=== PATIENT | female | born 1995 | race Caucasian/White ===

== ENCOUNTER 2023-01-02 19:48 | Emergency (ER) | payer OTHER, SELFPAY ==
[2023-01-02 20:02] VITALS: BP 119/66; PULSE 97; RESP 18; TEMP 36.9; O2SAT 100
--- NOTE | 2023-01-02 20:18 | ECG_ITS ---
Measurements Intervals [place] Rate: 86 P: 61 SD: 143 QRS: 85 QRSD: 90 T: 57 QT: 341 QTc: 409 Interpretive Statements SINUS RHYTHM INCOMPLETE RIGHT BUNDLE BRANCH BLOCK BORDERLINE ECG NO PREVIOUS ECG AVAILABLE FOR COMPARISON Electronically Signed On 01-03-2023 7:02:35 CDT by Dhaval Fisehr D.O.
--- NOTE | 2023-01-02 20:30 | ED.GENADULT ---
HPI - General Adult General Chief complaint: Dizziness Stated complaint: dizziness Time Seen by Provider: 01/02/23 20:10 History of Present Illness HPI narrative: 27-year-old female presenting to the ED for evaluation of a near syncopal episode. Patient reports just prior to arrival she had been getting ready for work when she was in the shower and had onset of lightheaded and dizziness. Patient fell like she is going to blackout. Patient states she did not actually have a syncopal episode. Patient was able to sit down the shower and rested for approximately 5 minutes and felt improved. Upon arrival lumbar department patient states she does feel improved. Patient is anxious about the situation. Patient denies any prior cardiac history. When asked if she had been eating and drinking well patient said no. Patient denies any change in medications, patient states he does not take any medications. Patient denies any alcohol or THC. Related Data Allergies Allergy/AdvReac Type Severity Reaction Status Date / Time Sulfa (Sulfonamide Allergy Other Verified 01/02/23 20:31 Antibiotics) Review of Systems Review of Systems: All systems reviewed & are unremarkable except as noted in HPI and below Exam Narrative: APPEARANCE: Well appearing, no pain, no distress, well-nourished. HEAD: normocephalic, atraumatic. EYES: PERRLA/EOMI, conjunctivae clear. NOSE: Normal no drainage NECK: Supple. No adenopathy, no masses. RESPIRATORY: Airway patent, respirations nonlabored. Clear to auscultation bilaterally, no rales, rhonchi, wheezing. CARDIOVASCULAR: Regular rate and rhythm without murmurs rubs or gallops. ABDOMINAL: Soft, nontender, nondistended, normal bowel sounds MUSCULOSKELETAL: Moves all extremities. Strength/ROM intact, No edema, No calf tenderness. NEURO: Alert. Cranial nerves II through XII intact. Grossly intact SKIN: Warm, dry. Normal Color Course Course Emergency Course: 27-year-old female presented ED for evaluation after having a near syncopal episode. Upon arrival to the ED patient states her symptoms are improved. Patient's vital signs are normal. Patient had no abnormalities on her CBC or CMP. UA had no evidence of infection. EKG showed normal sinus rhythm. Patient had normal orthostatic vital signs. Patient did feel improved after rehydration. Patient states that she had not been eating well over the past few days the patient was encouraged to follow a well-balanced diet. Patient was also encouraged to have close follow-up with her primary care physician. Patient was educated on reasons to return to the [facility] primary. All questions concerns were addressed and patient was well-appearing at time of discharge. Vital Signs Vital signs: Vital Signs Temperature 98.4 F 01/02/23 20:02 Pulse Rate 97 01/02/23 20:02 Respiratory Rate 18 01/02/23 20:02 Blood Pressure 119/66 01/02/23 20:02 Pulse Oximetry 100 01/02/23 20:02 Oxygen Delivery Room Air 01/02/23 20:02 Temperature 98.4 F 01/02/23 20:02 Pulse Rate 79 01/02/23 21:49 Respiratory Rate 16 01/02/23 21:49 Blood Pressure 112/55 L 01/02/23 21:49 Pulse Oximetry 100 01/02/23 21:49 Oxygen Delivery Room Air 01/02/23 20:02 Medical Decision Making Vital Signs Vital Signs: Vital Signs Temperature 98.4 F 01/02/23 20:02 Pulse Rate 97 01/02/23 20:02 Respiratory Rate 18 01/02/23 20:02 Blood Pressure 119/66 01/02/23 20:02 Pulse Oximetry 100 01/02/23 20:02 Oxygen Delivery Room Air 01/02/23 20:02 Temperature 98.4 F 01/02/23 20:02 Pulse Rate 79 01/02/23 21:49 Respiratory Rate 16 01/02/23 21:49 Blood Pressure 112/55 L 01/02/23 21:49 Pulse Oximetry 100 01/02/23 21:49 Oxygen Delivery Room Air 01/02/23 20:02 Lab Data Lab results reviewed: Yes I reviewed the patient's lab results. 01/02/23 20:29 01/02/23 20:29 Labs: Lab Results 01/02/23
[2023-01-02] MEDS: SODIUM CHLORIDE 0.9% IV 1,000 ML 999 ML IV CONT (20:32)
[2023-01-02 20:37] LABS: Basophils Absolute Auto 0.1 K/mm3 (0.0-0.1); Basophils Percent Auto 1.3 % (0.2-1.2); Eosinophils Absolute Auto 0.1 K/mm3 (0-0.3); Eosinophils Percent Auto 2.9 % (0-4.4); Hemoglobin 13.6 g/dL (12.0-15.0); Immature Granulocyte Absolute 0.01 K/mm3 (0.00-0.031); Immature Granulocyte Percent A 0.3 % (0-0.5); Lymphocytes Absolute Auto 1.29 K/mm3 (0.9-3.2); Lymphocytes Percent Auto 34.4 % (18.3-44.2); Mean Corpuscular Hemoglobin 32.9 pg (26-34); Mean Corpuscular Volume 96.9 fl (80-100); Monocytes Absolute Auto 0.4 K/mm3 (0.1-0.6); Monocytes Percent Auto 10.4 % (2.6-8.5); Neutrophils Absolute Auto 1.9 K/mm3 (1.3-6.7); Neutrophils Percent Auto 50.7 % (45.5-73.1); Platelet Count Result 195 k/mm3 (150-375); Red Blood Count 4.13 M/mm3 (4.2-5.4); Red Cell Distribution Width 11.4 % (11.5-14.5); White Blood Count 3.8 K/mm3 (4.5-10.0)
[2023-01-02 20:46] LABS: Alanine Aminotransferase 16 U/L (6-35); Albumin Level 4.5 g/dL (3.5-5.1); Alkaline Phosphatase 35 U/L (38-126); Anion Gap 5 mmol/L (8-16); Aspartate Amino Transferase 20 U/L (14-36); Bilirubin,Total 0.6 mg/dL (0.2-1.3); Blood Urea Nitrogen 11 mg/dL (7-17); Calcium 9.2 mg/dL (8.4-10.2); Carbon Dioxide 31 mmol/L (22-30); Chloride 102 mmol/L (98-107); Estimated CRCL calculation 88 ml/min; Estimated Glomerular Filt Rate > 60; Glucose 70 mg/dL (65-110); Potassium 4.1 mmol/L (3.4-5.0); Sodium 138 mmol/L (137-145)
[2023-01-02 21:26] VITALS: BP 106/58; PULSE 82
[2023-01-02 21:28] VITALS: BP 107/69; PULSE 79
[2023-01-02 21:30] VITALS: BP 107/64; PULSE 90
[2023-01-02 21:45] LABS: Appearance Urine Cloudy (Clear); Bacteria Urine None Seen /hpf; Bilirubin Urine Negative (Negative); Blood Urine Negative (Negative); Color Urine Yellow (Yellow); Glucose Urine UA Negative (Negative); Ketones Urine Negative (Negative); Leukocyte Esterase Ur Negative LEU/UL (Negative); Nitrate Urine Negative (Negative); Non Pathogenic Casts 0-2; Protein Urine Negative (Negative); RBC Urine 0-2 /hpf (0-2); Specific Grav Ur 1.018 (1.001-1.035); Squamous Epithelial Cell Urine None seen /hpf (Few); WBC Urine 0-5 /hpf
[2023-01-02 21:46] LABS: Add Urine Microscopic? YES
[2023-01-02 21:49] VITALS: BP 112/55; PULSE 79; RESP 16; O2SAT 100
== END 2023-01-02 22:05 | disposition home or self-care (01) ==
PROVIDERS: Emergency Provider Emergency Medicine; PCP Family Medicine
DX: R42 Dizziness and giddiness (principal)
CPT/HCPCS: 36415; 80053; 81001; 81025; 83735; 84443; 85025; 93005; 96360; 99283; J7030

== ENCOUNTER 2023-03-19 09:00 | Outpatient (CLI) | payer OTHER, SELFPAY ==
--- NOTE | ~2023-03-19 | US_ITS ---
Pelvic ultrasound. Clinical History: Ovarian cyst Technique: Realtime transabdominal and transvaginal scanning of the pelvis was performed. Color flow Doppler and Doppler spectral analysis were performed. Findings: The uterus is anteverted. The endometrial stripe has a thickness of 10 mm. No focal mass i s identified. The right ovary measures 1.8 x 1.5 x 1.4 cm. No significant right ovarian or adnexal mass is seen. The left ovary measures 2.1 x 2.4 x 2.0 cm. No significant left ovarian or adnexal mass is seen. Vascular flow present in both ovaries on Doppler spectral analysis. There is no evidence of free fluid in the cul de sac. Impression: Unremarkable pelvic ultrasound. Reviewed, dictated and finalized at [facility]. Impression: Unremarkable pelvic ultrasound.
== END 2023-03-19 09:01 | disposition home or self-care (01) ==
PROVIDERS: PCP Family Medicine; Visit Provider Nurse Practitioner Family
DX: N83.209 Unspecified ovarian cyst, unspecified side (principal)
CPT/HCPCS: 76830

== ENCOUNTER 2023-04-30 21:56 | Emergency (ER) | payer OTHER, SELFPAY ==
[2023-04-30 22:20] VITALS: BP 103/62; PULSE 80; RESP 20; TEMP 36.5; O2SAT 100
--- NOTE | 2023-05-01 04:42 | PC.NURSE ---
no answer at triage
== END 2023-05-01 05:44 | disposition left against medical advice (07) ==
LOC: ANHED 05-01 04:51
PROVIDERS: PCP Family Medicine
DX: R10.2 Pelvic and perineal pain (principal)
CPT/HCPCS: 99199

== ENCOUNTER 2023-06-29 15:04 | Emergency (ER) | payer OTHER, SELFPAY ==
--- NOTE | ~2023-06-29 | US_ITS ---
EXAMINATION: US OB <=14 wk fetus w TV DATE: 06/29/2023 17:02 INDICATION: Cramping and spotting. Evaluate for ectopic . TECHNIQUE: Real-time transabdominal obstetric ultrasound. FINDINGS: No prior studies for comparison. The uterus measures 9.2 x 5.5 x 6.4 cm. There is an intrauterine gestational sac, with pole juan ntified. The crown rump length measures 0.71 cm, which correlates with a estimated gestational age o f 6 weeks 4 days. heart tones are identified measuring 139. The ovaries are within normal morel its. IMPRESSION: 1. SL IUP with an EGA of 6 weeks, 4 days (EDC by current ultrasound of 02/18/2024). Reviewed, dictated and finalized at location L. COVERS TRIMMER IMPRESSION: 1. SL IUP with an EGA of 6 weeks, 4 days (EDC by current ultrasound of ).
[2023-06-29 15:08] VITALS: BP 110/58; PULSE 82; RESP 16; TEMP 36.9; O2SAT 100
--- NOTE | 2023-06-29 15:10 | ED.ABDPAIN ---
HPI - Abdominal Pain General Chief Complaint: Abdominal Pain Stated Complaint: pelvic pain/6 weeks Time Seen by Provider: 06/29/23 16:15 Source: patient Mode of arrival: ambulatory Limitations: no limitations History of Present Illness HPI narrative: Patient is a 27 y/o female who presents to the ED with c/o lower abdominal cramping. Patient is currently approximately [address] 05/15/23, . OBGYN will be Dr. Ryan. Patient reports having intermittent lower abdominal cramping for the last 3 weeks. She is concerned she may have an ectopic and is unable to be seen by OBGYN until 07/29. She presents today wanting an US. She was seen at an outside hospital on Wednesday but did not receive an US. She does also c/o N/V and states she noticed a small amount of vaginal spotting 3 days ago with wiping. She has not had any bleeding since then. Denies fevers, dysuria, hematuria. Related Data Allergies Allergy/AdvReac Type Severity Reaction Status Date / Time Sulfa (Sulfonamide Allergy Other Verified 03/10/23 08:22 Antibiotics) Review of Systems Constitutional: Constitutional: Denies fever(s) Gastrointestinal: Gastrointestinal: Reports abdominal pain, Reports nausea and Reports vomiting Genitourinary: Genitourinary: Reports abnormal vaginal bleeding, Denies hematuria and Denies dysuria [facility] Past Medical History Medical History Body mass index (BMI) less than 20 Family History Family History Father Intestinal anomaly, congenital Mother Diverticulitis Sibling No problems noted. 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 Exam Const: General: healthy appearing and no acute distress Nutritional Appearance: well nourished Orientation/consciousness: patient oriented x3 Limitations: no limitations Resp: Effort & Inspection: normal respiratory effort Auscultation: clear to auscultation bilaterally Cardio: Rate: regular rate Rhythm: regular rhythm GI: GI Palp: Yes Soft to palpation and No Tenderness to palpation present (GI) Auscultation: normal bowel sounds Course Vital Signs Vital signs: Vital Signs Temperature 98.4 F 06/29/23 15:08 Pulse Rate 82 06/29/23 15:08 Respiratory Rate 16 06/29/23 15:08 Blood Pressure 110/58 L 06/29/23 15:08 Pulse Oximetry 100 06/29/23 15:08 Oxygen Delivery Room Air 06/29/23 15:08 Temperature 98.4 F 06/29/23 15:08 Pulse Rate 82 06/29/23 15:08 Respiratory Rate 16 06/29/23 15:08 Blood Pressure 110/58 L 06/29/23 15:08 Pulse Oximetry 100 06/29/23 15:08 Oxygen Delivery Room Air 06/29/23 15:08 MDM - Abdominal Pain MDM Narrative Medical decision making narrative: MSE by ZULAY in triage. Patient present ED with lower abdominal cramping, vaginal spotting, currently , unsure how far along. Approximately 6 weeks by last normal cycle. Wanting ultrasound. Vital signs stable upon arrival. Patient in no acute distress. Nontoxic appearing. Basic laboratory studies unremarkable. Beta quant around 129,000. Urine appears infectious. Will send for culture and treat. Ultrasound obtained today showing a live IUP, 6 weeks 4 day
[2023-06-29 15:40] LABS: Basophils Percent Auto 0.6 % (0.2-1.2); Eosinophils Percent Auto 0.2 % (0-4.4); Hematocrit 35.9 % (37.0-47.0); Hemoglobin 11.8 g/dL (12.0-15.0); Immature Granulocyte Absolute 0.01 K/mm3 (0.00-0.031); Immature Granulocyte Percent A 0.2 % (0-0.5); Lymphocytes Absolute Auto 1.22 K/mm3 (0.9-3.2); Lymphocytes Percent Auto 25.7 % (18.3-44.2); Mean Corpuscular HGB Conc 32.9 g/dl (32-36); Mean Corpuscular Hemoglobin 31.6 pg (26-34); Mean Corpuscular Volume 96.2 fl (80-100); Mean Platelet Volume 11.8 fl (7.4-10.4); Monocytes Absolute Auto 0.4 K/mm3 (0.1-0.6); Monocytes Percent Auto 8.2 % (2.6-8.5); Neutrophils Absolute Auto 3.1 K/mm3 (1.3-6.7); Neutrophils Percent Auto 65.1 % (45.5-73.1); Platelet Count Result 165 k/mm3 (150-375); Red Blood Count 3.73 M/mm3 (4.2-5.4); Red Cell Distribution Width 11.9 % (11.5-14.5); White Blood Count 4.7 K/mm3 (4.5-10.0)
[2023-06-29 15:40] LABS: Appearance Urine Cloudy (Clear); Bacteria Urine 4+ /hpf; Bilirubin Urine Negative (Negative); Blood Urine Negative (Negative); Color Urine Yellow (Yellow); Glucose Urine UA Negative (Negative); Ketones Urine Negative (Negative); Leukocyte Esterase Ur 2+ LEU/UL (Negative); Nitrate Urine Negative (Negative); Non Pathogenic Casts 0-2; Protein Urine Negative (Negative); RBC Urine 0-2 /hpf (0-2); Specific Grav Ur 1.009 (1.001-1.035); Squamous Epithelial Cell Urine Many /hpf (Few); Urobilinogen Urine 0.2 mg/dL (<2.0); WBC Urine 21-50 /hpf; pH Urine 7.5 (5.0-9.0)
[2023-06-29 15:55] LABS: Add Urine Microscopic? YES
[2023-06-29 16:17] VITALS: BP 104/63; PULSE 72; RESP 17; O2SAT 100
[2023-06-29 16:18] VITALS: PULSE 67; RESP 18; O2SAT 100
[2023-06-29 17:37] VITALS: BP 112/64; PULSE 87; RESP 18; O2SAT 100
== END 2023-06-29 17:49 | disposition home or self-care (01) ==
PROVIDERS: Emergency Provider Physician Assistant; PCP Family Medicine
DX: O23.41 Unspecified infection of urinary tract in pregnancy, first trimester (principal); R10.2 Pelvic and perineal pain; Z3A.01 Less than 8 weeks gestation of pregnancy
CPT/HCPCS: 36415; 76801; 76817; 81001; 84702; 85025; 85461; 86850; 86880; 86900; 86901; 87086; 99284

== ENCOUNTER 2023-08-12 11:12 | Outpatient (CLI) | payer OTHER, SELFPAY ==
--- NOTE | ~2023-08-12 | US_ITS ---
EXAMINATION: US thyroid DATE: 08/12/2023 11:50 INDICATION: Nontoxic goiter, unspecified. TECHNIQUE: Multiple ultrasound images of the thyroid were obtained. COMPARISON: None. FINDINGS: The right thyroid lobe measures 3.9 x 1.8 x 1.3 cm. The left thyroid lobe measures 3.8 x 1.4 x 1.1 c m. There is normal echotexture and echogenicity throughout the thyroid gland. No discrete nodules id entified. Normal vascular flow is present. IMPRESSION: 1. Normal thyroid. Reviewed, dictated and finalized at location E. R SUPPLY ENGINEER IMPRESSION: 1. Normal thyroid.
== END 2023-08-12 11:13 | disposition home or self-care (01) ==
PROVIDERS: PCP Family Medicine; Visit Provider Registered Nurse
DX: E04.9 Nontoxic goiter, unspecified (principal)
CPT/HCPCS: 76536

== ENCOUNTER 2023-11-26 10:33 | Outpatient (RCR) | payer OTHER, SELFPAY ==
[2023-11-26] MEDS: RHO(D) IMMUNE GLOBULIN 300 MCG/2 ML SYRINGE IM (12:32)
== END 2023-11-26 11:00 | disposition home or self-care (01) ==
LOC: ANHLAB 10:33
PROVIDERS: PCP Family Medicine; Visit Provider Nurse Practitioner Family
DX: O36.0920 Maternal care for other rhesus isoimmunization, second trimester, not applicable or unspecified (principal); Z34.92 Encounter for supervision of normal pregnancy, unspecified, second trimester; Z3A.00 Weeks of gestation of pregnancy not specified
CPT/HCPCS: 36415; 85461; 86850; 86900; 86901; 90384; 96372; J2790

== ENCOUNTER 2024-01-04 15:09 | Outpatient (CLI) | payer OTHER, SELFPAY ==
[2024-01-04 15:45] LABS: Basophils Percent Auto 0.4 % (0.2-1.2); Hematocrit 30.8 % (37.0-47.0); Hemoglobin 10.6 g/dL (12.0-15.0); Immature Granulocyte Absolute 0.03 K/mm3 (0.00-0.031); Immature Granulocyte Percent A 0.4 % (0-0.5); Lymphocytes Percent Auto 14.9 % (18.3-44.2); Mean Corpuscular HGB Conc 34.4 g/dl (32-36); Mean Corpuscular Hemoglobin 34.9 pg (26-34); Mean Corpuscular Volume 101.3 fl (80-100); Mean Platelet Volume 12.3 fl (7.4-10.4); Monocytes Absolute Auto 0.5 K/mm3 (0.1-0.6); Monocytes Percent Auto 6.1 % (2.6-8.5); Neutrophils Absolute Auto 6.3 K/mm3 (1.3-6.7); Neutrophils Percent Auto 78.2 % (45.5-73.1); Platelet Count Result 107 k/mm3 (150-375); Red Blood Count 3.04 M/mm3 (4.2-5.4); White Blood Count 8.1 K/mm3 (4.5-10.0)
[2024-01-04 17:05] LABS: HIV 1/2 Ab P24 Ag Result Negative (Negative)
[2024-01-05 14:53] LABS: Rapid Plasma Reagin Non-Reactive (NonReactive)
== END 2024-01-04 15:10 | disposition home or self-care (01) ==
LOC: ANHLAB 15:11
PROVIDERS: PCP Family Medicine; Visit Provider Nurse Practitioner Obstetrics & Gynecology
DX: Z34.90 Encounter for supervision of normal pregnancy, unspecified, unspecified trimester (principal)
CPT/HCPCS: 36415; 85025; 86592; 86703; G0432

== ENCOUNTER 2024-01-11 13:50 | Outpatient (CLI) | payer OTHER, SELFPAY ==
[2024-01-11 14:33] LABS: Mean Platelet Volume 12.7 fl (7.4-10.4); Platelet Count Result 118 k/mm3 (150-375)
== END 2024-01-11 13:51 | disposition home or self-care (01) ==
LOC: ANHLAB 13:52
PROVIDERS: PCP Family Medicine; Visit Provider Obstetrics & Gynecology
DX: D69.6 Thrombocytopenia, unspecified (principal)
CPT/HCPCS: 36415; 85049

== ENCOUNTER 2024-01-18 13:44 | Outpatient (CLI) | payer OTHER, SELFPAY ==
[2024-01-18 14:00] LABS: Immature Platelet Fraction Pct 15.6 % (0.9-11.2); Mean Platelet Volume 12.2 fl (7.4-10.4); Platelet Count Result 108 k/mm3 (150-375)
== END 2024-01-18 13:45 | disposition home or self-care (01) ==
PROVIDERS: Nurse Practitioner Obstetrics & Gynecology; PCP Family Medicine; Visit Provider Obstetrics & Gynecology
DX: D69.6 Thrombocytopenia, unspecified (principal)
CPT/HCPCS: 36415; 85049; 85055

== ENCOUNTER 2024-01-20 15:21 | Emergency (ER) | payer OTHER, SELFPAY ==
--- NOTE | ~2024-01-20 | US_ITS ---
EXAMINATION:US venous doppler LE LT INDICATION:Left leg swelling TECHNIQUE: Multiple grayscale, color flow and Doppler images of the left lower extremity deep venous systems were obtained and reviewed. COMPARISON:No prior studies for comparison. FINDINGS: The common femoral, superficial femoral and popliteal veins demonstrate normal respiratory variation, augmentation and compressibility. Color flow is also seen within the posterior tibial, pe roneal, greater saphenous and profunda veins. IMPRESSION: 1: No lower extremity deep venous thrombosis. Reviewed, dictated and finalized at location B.
[2024-01-20 15:25] VITALS: BP 103/57; PULSE 94; RESP 18; TEMP 36.4; O2SAT 99
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
== END 2024-01-20 17:58 | disposition home or self-care (01) ==
PROVIDERS: Emergency Provider Physician Assistant; PCP Family Medicine
DX: O99.891 Other specified diseases and conditions complicating pregnancy (principal); M79.662 Pain in left lower leg; Z87.891 Personal history of nicotine dependence; Z3A.36 36 weeks gestation of pregnancy
CPT/HCPCS: 93971; 99284

== ENCOUNTER 2024-02-11 13:17 | Outpatient (CLI) | payer OTHER, SELFPAY ==
[2024-02-11 14:15] LABS: Hematocrit 32.1 % (37.0-47.0); Hemoglobin 11.3 g/dL (12.0-15.0); Immature Platelet Fraction Pct 21.2 % (0.9-11.2); Mean Corpuscular HGB Conc 35.2 g/dl (32-36); Mean Corpuscular Hemoglobin 34.8 pg (26-34); Mean Corpuscular Volume 98.8 fl (80-100); Platelet Count Result 117 k/mm3 (150-375); Red Blood Count 3.25 M/mm3 (4.2-5.4); Red Cell Distribution Width 12.9 % (11.5-14.5); White Blood Count 7.9 K/mm3 (4.5-10.0)
== END 2024-02-11 13:18 | disposition home or self-care (01) ==
LOC: ANHLAB 13:18
PROVIDERS: PCP Family Medicine; Visit Provider Obstetrics & Gynecology
DX: D69.6 Thrombocytopenia, unspecified (principal)
CPT/HCPCS: 36415; 85027; 85055

== ENCOUNTER 2024-02-14 13:46 | Outpatient (CLI) | payer OTHER, SELFPAY ==
[2024-02-14 14:11] LABS: Hematocrit 35.3 % (37.0-47.0); Hemoglobin 11.9 g/dL (12.0-15.0); Mean Corpuscular HGB Conc 33.7 g/dl (32-36); Mean Corpuscular Hemoglobin 34.2 pg (26-34); Mean Corpuscular Volume 101.4 fl (80-100); Mean Platelet Volume 12.3 fl (7.4-10.4); Platelet Count Result 110 k/mm3 (150-375); Red Blood Count 3.48 M/mm3 (4.2-5.4); Red Cell Distribution Width 13.2 % (11.5-14.5); White Blood Count 8.6 K/mm3 (4.5-10.0)
[2024-02-14 15:00] LABS: HIV 1/2 Ab P24 Ag Result Negative (Negative)
[2024-02-14 19:10] LABS: Rapid Plasma Reagin Non-Reactive (NonReactive)
== END 2024-02-14 13:47 | disposition home or self-care (01) ==
PROVIDERS: PCP Family Medicine; Visit Provider Obstetrics & Gynecology
DX: Z34.93 Encounter for supervision of normal pregnancy, unspecified, third trimester (principal); Z3A.00 Weeks of gestation of pregnancy not specified
CPT/HCPCS: 36415; 85027; 86592; 86703; 86850; 86880; 86900; 86901; 86902; G0432

== ENCOUNTER 2024-02-15 05:38 | Inpatient (IN) | payer OTHER, SELFPAY ==
[2024-02-15] VITALS (46 sets, daily range): BP systolic 89–117; BP diastolic 54–84; PULSE 51–132; RESP 13–18; TEMP 36.5–36.8; O2SAT 93–100; BMI 25.7
[2024-02-15] MEDS: ACETAMINOPHEN 500 MG TABLET 1000 MG PO (06:09)
[2024-02-15] MEDS: LACTATED RINGERS 1,000 ML 125 ML IV CONT ×2 (06:10→07:14)
--- NOTE | 2024-02-15 06:21 | LDADM ---
This patient, Joycelyn Chicas, was admitted to Labor/Delivery/Recovery 120 on 02/15/24 at 05:38. Plans for labor, pain management and were discussed with patient. Patient/family oriented to hospital policies and general routines including ID bracelet, bed and alarms, visiting hours, pain management, procedures, bathroom and other care routines, personal items, smoking policy, room service/diet and guest tray routines, infant security routines, and visiting hours. Patient/Family are encouraged to report perceived risks to care and to ask questions if they do not understand what they are told or what they should do. See OBIX for further documentation.
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
[2024-02-15] MEDS: FAMOTIDINE 20 MG/2 ML VIAL IV PUSH (07:14)
[2024-02-15] MEDS: ONDANSETRON INJ 4 MG/2 ML VIAL IV PUSH (07:14)
--- NOTE | 2024-02-15 07:34 | WPDHPUPDATE1 ---
History and Physical Update Update Date/Time: 02/15/24 07:34 History and Physical has been reviewed, including an updated exam of the patient. There are NO changes in the patient's condition. Risks, benefits, and alternatives have been discussed and questions answered. Patient agrees to proceed with procedure.
[2024-02-15] MEDS: ceFAZolin 2 GM/D5W 50 ML 2 GM/50 ML BAG IVPB (07:42)
--- NOTE | 2024-02-15 09:04 | PM.OP ---
Procedure Note - Brief Procedure Note - Brief Date of procedure: 02/15/24 C/S elective repeat lysis of adhesion Post-op diagnosis: Same Procedure performed: Repeat low transverse section Surgeon: Koko Ryan MD Anesthesia: spinal Findings: Female infant, scarring of right fallopian tube to lower uterus Estimated blood loss (mL): 450 Drains: No Packing: No Pathology: None sent Complications: No immediate complications Condition: Stable Disposition: Floor
[2024-02-15] MEDS: OXYTOCIN 30 UNITS/NS 500 ML 30 UNITS/500 ML BAG 125 UNITS IV CONT (09:41)
[2024-02-15] MEDS: LORATADINE 10 MG TABLET PO (11:20)
--- NOTE | 2024-02-15 11:30 | PC.NURSE ---
Per Dr. Ryan do not give scheduled Toradol to this patient due to platelet count. We may give scheduled Tylenol and Ibuprofen and PRN medications for pain management.
--- NOTE | 2024-02-15 11:30 | OBPPTRN ---
Patient transferred to post room #278 via stretcher. Support person present. Oriented to unit, room, information board, rooming in, admission packet and security measures. Patient verbalizes understanding.
[2024-02-15] MEDS: ACETAMINOPHEN 325 MG TABLET 650 MG PO ×2 (12:33→18:37)
[2024-02-15] MEDS: MULTIVIT/MIN/PREN/FOL AC/IRON TABLET 1 TAB PO (12:33)
[2024-02-15] MEDS: SIMETHICONE 80 MG TAB.CHEW PO ×2 (12:33→17:41)
--- NOTE | 2024-02-15 13:30 | PC.NURSE ---
Breast pump provided due to maternal preference. Instructions given on cleaning, care, usage, that there should be no pain, pumping schedule for milk production, collection, and storage of human milk. Patient currently has visitors in room and declined assistance with the breast pump at this time. Instructed her to call when she is ready to pump to measure correct phalange size.
[2024-02-15] MEDS: DEXTROSE 5%/0.45% SOD CHL 1,000 ML 125 ML IV CONT (14:51)
--- NOTE | 2024-02-15 16:16 | PC.NURSE ---
1510. Introductions were made, then consulted with patient to assess needs related to . Mother explained that she has been able to latch baby once so far, and has supplemented baby bc she has been to sleepy to latch and nurse two times. She explained a pump has been provided to her by her RN to protect her milk supply if she plans to supplement. Encouraged understanding of the benefits of skin to skin (demonstrating unwrapping and placing upright on her chest), stimulating with massage touch, changing positions to encourage wakefulness, how to watch for early feeding cues, responsive feeding, feeding on demand (aiming for 8-12 times in 24 hours, about every 2-3 hours), milk production, building/maintaining a milk supply, duration of feeding, signs of adequate intake/output and how to record on the feeding sheet. Mother works well with her infant with encouragement and education. Reviewed positioning and ear, shoulder, hip alignment, supporting the breast to facilitate a deep latch, asymmetrical latch (off-center), leading with the chin with a big, open, wide gape and body close to mother. just finished eating so mom encouraged to call next feeding to help with latch and positioning. Education given to the mother of how to visualize the suckling (with good rocking jaw motion), swallows (dropping of the lower jaw) and how to listen for drinking at the breast (the ka sound). Reviewed comfort measures of healing with a warm, wet washcloth to rinse breast, then leave open to air-dry, good handwashing when or touching the breast/nipples to prevent infection. Mother voiced understanding of skin to skin, stimulating with massage touch, responsive feedings, hand expressed colostrum, talking to infant to encourage if it has been 2 -2.5 hours since the start of the last , to call if does not latch, or if there is discomfort with . Resources used for education were facilitated with the visual educational handouts & mom and baby guide. Inpatient resources provided with feeding sheet, name written on the communication board, and the mom/baby guide. Parents voiced understanding of information, demonstrated learning and will call if there is a request for assistance. Reported to the Primary RN.
--- NOTE | 2024-02-15 16:22 | PC.NURSE ---
1545. Mom fitted for proper size flange for medela pump. Mom measured at size 23mm; education given to mom on using the size 27 flange based, & that there should not be any pain while pumping. Visual handout utilized to show mom correct placement. Mom verbalized understanding.
[2024-02-15] MEDS: DOCUSATE SODIUM 100 MG CAPSULE PO (17:41)
[2024-02-16] MEDS: HYDROcodone/acetaminophen (*CRX) 5-325 MG TABLET 1 TAB PO ×2 (04:14→09:39)
[2024-02-16 04:27] VITALS: BP 104/64; PULSE 75; RESP 16; TEMP 37.3; O2SAT 100
[2024-02-16 05:41] LABS: Basophils Percent Auto 0.4 % (0.2-1.2); Eosinophils Percent Auto 0.2 % (0-4.4); Hematocrit 28.1 % (37.0-47.0); Hemoglobin 9.4 g/dL (12.0-15.0); Immature Granulocyte Absolute 0.04 K/mm3 (0.00-0.031); Immature Granulocyte Percent A 0.4 % (0-0.5); Lymphocytes Absolute Auto 1.18 K/mm3 (0.9-3.2); Lymphocytes Percent Auto 11.5 % (18.3-44.2); Mean Corpuscular HGB Conc 33.5 g/dl (32-36); Mean Corpuscular Hemoglobin 34.8 pg (26-34); Mean Corpuscular Volume 104.1 fl (80-100); Mean Platelet Volume 13.2 fl (7.4-10.4); Monocytes Absolute Auto 0.6 K/mm3 (0.1-0.6); Monocytes Percent Auto 6.2 % (2.6-8.5); Neutrophils Absolute Auto 8.4 K/mm3 (1.3-6.7); Neutrophils Percent Auto 81.3 % (45.5-73.1); Platelet Count Result 103 k/mm3 (150-375); Red Cell Distribution Width 12.9 % (11.5-14.5); White Blood Count 10.3 K/mm3 (4.5-10.0)
[2024-02-16] MEDS: ACETAMINOPHEN 325 MG TABLET 650 MG PO ×3 (06:20→18:34)
[2024-02-16] MEDS: POLYSACCHARIDE IRON COMPLEX 150 MG CAPSULE PO ×2 (07:46→17:35)
[2024-02-16] MEDS: SIMETHICONE 80 MG TAB.CHEW PO ×3 (07:47→17:35)
[2024-02-16] MEDS: LIDOCAINE 5% PATCH 1 PATCH TRANSDERM (07:47)
[2024-02-16 08:00] VITALS: BP 104/63; PULSE 78; RESP 16; TEMP 36.7; O2SAT 99
[2024-02-16] MEDS: MULTIVIT/MIN/PREN/FOL AC/IRON TABLET 1 TAB PO (08:06)
[2024-02-16] MEDS: DOCUSATE SODIUM 100 MG CAPSULE PO ×2 (08:06→17:35)
--- NOTE | 2024-02-16 08:31 | W.PM.PROC2 ---
Procedure Note - Detailed Date of Procedure 02/16/24 Pre-op Diagnosis elective repeat Post-op Diagnosis Same Procedure Performed repeat low transverse section Surgeon Koko Ryan MD Hoof And Shoe Inspector Joanne Browne Anesthesia Spinal Indications elective repeat section Findings adhesion of the vesicouterine peritoneum to lower uterine segment female 7 lb 4 oz Apgars 8 9 Description of Procedure After informed consent, risks and benefits of the procedure was discussed with the patient. The patient was taken to the operating room where she was placed in the dorsal lithotomy position with leftward tilt. After the prior placed epidural anesthesia was found to be adequate, she was then prepped and draped in the usual sterile fashion. A Pfannenstiel skin incision was made with a scalpel and carried through to the underlying layer of fascia. The fascia was then nicked in the midline, extending bilaterally. The fascia was dissected off the rectus muscles bluntly and sharply, superiorly and inferiorly. The rectus muscles were in the midline, and peritoneum was identified and entered bluntly. The pelvic organs were visualized. The bladder blade was then inserted. The vesicouterine peritoneum was identified and entered sharply with Metzenbaum scissors and extended bilaterally and then the bladder flap was created digitally. The low transverse uterine incision was then made with the scalpel and extended with bilateral index fingers in a crescent-shaped fashion. The head was delivered and the rest of the infant was delivered. The nose and mouth suctioned. The cord was clamped twice and cut. The was then handed off to the awaiting pediatric staff. The placenta was then delivered manually. The uterine cavity was sponge curetted. The uterus was then exteriorized. The uterine incision was then closed with 0 vicryl in a running locked fashion. Hemostasis noted. A second layer of 0 vicryl was used in an imbricating fashion. hemostasis noted. The cul-de-sac was cleared of debris and irrigated. The uterus was then returned to the abdomen. Bilateral gutters were cleared off all clots and debris. The uterine incision was noted to be hemostatic. Interceed placed on uterine incision. The muscle bellies were inspected and noted to be hemostatic. The subfascial layer was noted to be hemostatic, and the fascia was closed with 0 Vicryl in a running fashion. The subcutaneous layer was then approximated with 3-0 Vicryl in a subcutaneous fashion. The skin was closed with Ensorb ruthie. Skin dermabond applied at incision. All instruments, needle, and lap counts were correct x3. The patient was taken to the recovery room in stable condition. Estimated Blood Loss 455 Drains No Packing No Pathology None sent Complications No immediate complications Condition Stable Disposition Floor [facility] Billing Surgery - Charge Forward: Surgery Billing
[2024-02-16] MEDS: RHO(D) IMMUNE GLOBULIN 300 MCG/2 ML SYRINGE IM (11:24)
[2024-02-16] MEDS: IBUPROFEN 600 MG TABLET PO ×2 (12:36→18:34)
--- NOTE | 2024-02-16 14:33 | WPDANLDPN2 ---
Anes-Prog Note L&D Date/Time: 02/16/24 14:33 Comfortable throughout: section Neuraxial method: spinal Epidural/Spinal procedure site: clean & non-tender Neuro status: Neuro function grossly intact. Cardiovascular status: normal Respiratory status: normal Airway patency: baseline Mental status: baseline Post-Op hydration status: normal Vital Signs: Last Vital Signs Temp 98.1 F 02/16/24 08:00 Pulse 78 02/16/24 08:00 Resp 16 02/16/24 08:00 BP 104/63 02/16/24 08:00 Pulse Ox 99 02/16/24 08:00 O2 Del Method Room Air 02/16/24 08:00 Pain score (VAS): 0/10 I/O: Intake & Output 02/15/24 02/16/24 02/16/24 23:59 07:59 15:59 Intake Total 1000 0 Output Total 750 1500 450 Balance 250 -1500 -450 Post-procedural complaints: none Patient feedback: Patient satisfied with anesthetic care.
--- NOTE | 2024-02-16 14:33 | WPDANLDNPN2 ---
Anes-Prog Note L&D-Neuraxial Date/Time: 02/16/24 14:33 Neuraxial medications: intrathecal PF morphine Opiod-related complaints: none Patient feedback: Patient satisfied with post-operative pain management.
[2024-02-16 20:17] VITALS: BP 111/73; PULSE 99; RESP 18; TEMP 37.4; O2SAT 99
[2024-02-17] MEDS: ACETAMINOPHEN 325 MG TABLET 650 MG PO ×4 (00:34→19:57)
[2024-02-17] MEDS: IBUPROFEN 600 MG TABLET PO ×4 (00:34→19:57)
[2024-02-17] MEDS: HYDROcodone/acetaminophen (*CRX) 5-325 MG TABLET 1 TAB PO ×2 (00:37→19:56)
[2024-02-17] MEDS: POLYSACCHARIDE IRON COMPLEX 150 MG CAPSULE PO ×2 (07:00→17:27)
[2024-02-17] MEDS: SIMETHICONE 80 MG TAB.CHEW PO ×3 (07:01→17:27)
--- NOTE | 2024-02-17 08:39 | PM.OBPNVD ---
OB - PN: Subj Subjective Date/time seen: 02/16/24 0930 Interval history: She has ambulated in room this morning, pain improved when she took medication, no leg pain, lochia mild. No emesis. No flatus. Baby doing well. OB - PN: Obj Data Labs 02/16/24 04:21 Labs: Laboratory Results - last 24 hr 02/16/24 04:21 Blood Type A Negative Antibody Screen TNP Screen Negative Baby's Blood Type A pos Baby's IVAN Positive Doses of RhIg Required 1 OB - PN A/P Assessment and Plan (1) Delivery by section: Status: Acute Assessment and Plan: POD1. Encouraged to take the pain medication. Routine post op care. Time Spent With Patient Time: Total time spent is greater than 50% in coordination of care (as documented) at patient's floor/unit and/or counseling patient: Exam Const: General: comfortable and no acute distress Resp: Effort & Inspection: normal respiratory effort Auscultation: clear to auscultation bilaterally GI: Other: incision intact no drainage fundus -1 umb, appropriate tender Neuro: General: oriented to person, oriented to place and oriented to time Extrem: General: normal to inspection and no calf tenderness Psych: Mental Status: mental status grossly normal Affect: normal affect
--- NOTE | 2024-02-17 08:40 | PC.NURSE ---
Introductions were made, then consulted with patient to assess needs related to . Mother has been pumping some and bottle feeding in the night. She states struggles to latch, but that her intention is to continue to put to breast. Encouraged understanding of milk production, building/maintaining a milk supply, and pumping regularly if infant is not effectively stimulating the breast. Mom just pumped 9ml of breastmilk and is feeding from the bottle now. Mother agrees that she will call out at the next feeding time for assistance with latching. Parents voiced understanding of information, demonstrated learning and will call if there is a request for assistance. Reported to the Primary RN.
--- NOTE | 2024-02-17 08:42 | PM.OBPNVD ---
OB - PN: Subj Subjective Date/time seen: 02/17/24 08:42 Interval history: She reports flatus, tolerating regular diet, no leg pain. Lochia decreasing. Pain controlled today. Patient comments: pain well controlled, tolerating diet and flatus present OB - PN: Obj Data Labs 02/16/24 04:21 Labs: Laboratory Results - last 24 hr 02/16/24 04:21 Blood Type A Negative Antibody Screen TNP Screen Negative Baby's Blood Type A pos Baby's IVAN Positive Doses of RhIg Required 1 OB - PN A/P Assessment and Plan (1) Delivery by section: Status: Acute Assessment and Plan: POD2. Doing well. Routine post op care. Time Spent With Patient Time: Total time spent is greater than 50% in coordination of care (as documented) at patient's floor/unit and/or counseling patient: Exam Const: General: comfortable and no acute distress Resp: Effort & Inspection: normal respiratory effort Auscultation: clear to auscultation bilaterally GI: Other: incision intact no drainage, fundus -2 umb firm appropriate tender Neuro: General: oriented to person, oriented to place and oriented to time Extrem: General: normal to inspection and no calf tenderness Psych: Mental Status: mental status grossly normal
[2024-02-17 08:45] VITALS: BP 130/67; PULSE 92; RESP 16; TEMP 36.4; O2SAT 100
[2024-02-17] MEDS: DOCUSATE SODIUM 100 MG CAPSULE PO ×2 (09:02→17:27)
[2024-02-17] MEDS: MULTIVIT/MIN/PREN/FOL AC/IRON TABLET 1 TAB PO (09:02)
[2024-02-17 20:05] VITALS: BP 121/74; PULSE 84; RESP 18; TEMP 36.8; O2SAT 100
[2024-02-18] MEDS: HYDROcodone/acetaminophen (*CRX) 5-325 MG TABLET 1 TAB PO ×3 (02:03→16:46)
[2024-02-18] MEDS: IBUPROFEN 600 MG TABLET PO ×4 (02:03→21:14)
[2024-02-18] MEDS: ACETAMINOPHEN 325 MG TABLET 650 MG PO ×4 (02:04→21:14)
[2024-02-18 06:02] LABS: Hematocrit 29.7 % (37.0-47.0); Hemoglobin 9.8 g/dL (12.0-15.0); Mean Corpuscular Hemoglobin 35.3 pg (26-34); Mean Corpuscular Volume 106.8 fl (80-100); Mean Platelet Volume 12.7 fl (7.4-10.4); Platelet Count Result 106 k/mm3 (150-375); Red Blood Count 2.78 M/mm3 (4.2-5.4); Red Cell Distribution Width 12.9 % (11.5-14.5); White Blood Count 5.7 K/mm3 (4.5-10.0)
[2024-02-18 07:15] VITALS: BP 108/58; PULSE 63; RESP 16; TEMP 36.1; O2SAT 100
[2024-02-18] MEDS: LIDOCAINE 5% PATCH 1 PATCH TRANSDERM (08:20)
[2024-02-18] MEDS: DOCUSATE SODIUM 100 MG CAPSULE PO ×2 (08:20→16:44)
[2024-02-18] MEDS: POLYSACCHARIDE IRON COMPLEX 150 MG CAPSULE PO ×2 (08:20→16:44)
[2024-02-18] MEDS: MULTIVIT/MIN/PREN/FOL AC/IRON TABLET 1 TAB PO (08:20)
[2024-02-18] MEDS: SIMETHICONE 80 MG TAB.CHEW PO ×3 (08:20→16:44)
--- NOTE | 2024-02-18 09:20 | PC.NURSE ---
Attempted to meet with patient regarding needs. Patient was sleeping at this time. Primary RN states that mom is a little engorged and is choosing to pump and bottle feed at this time. She has not been putting baby to breast. Will meet with patient later today as needed.
--- NOTE | 2024-02-18 10:48 | PM.OBPNVD ---
OB - PN: Subj Subjective Date/time seen: 02/18/24 10:48 Interval history: She reports flatus, tolerating regular diet, no leg pain. Lochia decreasing. Pain better controlled today. She states just started feeling more adequate pain control. baby status: doing well OB - PN: Obj Data Labs 02/18/24 04:53 Labs: Laboratory Results - last 24 hr 02/16/24 02/18/24 04:21 04:53 WBC 5.7 RBC 2.78 L Hgb 9.8 L Hct 29.7 L MCV 106.8 H MCH 35.3 H MCHC 33.0 RDW 12.9 Plt Count 106 L MPV 12.7 H Blood Type A Negative Antibody Screen TNP Screen Negative Baby's Blood Type A pos Baby's IVAN Positive Doses of RhIg Required 1 OB - PN A/P Assessment and Plan (1) Delivery by section: Status: Acute Assessment and Plan: POD3 s/p repeat section. She states she would feel more comfortable staying another night due to pain control. (2) Thrombocytopenia: Code(s): D69.6 - Thrombocytopenia, unspecified Status: Acute Assessment and Plan: Platelet count increasing. No signs of active bleeding. Will recheck . Time Spent With Patient Time: Total time spent is greater than 50% in coordination of care (as documented) at patient's floor/unit and/or counseling patient: Exam Const: General: no acute distress and alert Resp: Effort & Inspection: normal respiratory effort GI: Other: fundus firm below umbilicus, incision intact, small amount of drainage under the dermabond, no discharge express, less swelling of mons, no erythema Neuro: General: oriented to person, oriented to place and oriented to time Extrem: General: normal to inspection and no calf tenderness Psych: Appearance: grossly normal
--- NOTE | 2024-02-18 13:00 | PC.NURSE ---
Discussed pumping with mother. It is her choice to pump an bottle feed and not put baby to breast. Her breasts feel very full and firm. She complains of some tenderness. This morning she pumped 35ml, but the next time she pumped she didn't get much and was concerned that the pump wasn't working. She is currently pumping at this time, she states that her nipples do not hurt when pumping. In the 10 minutes I was speaking with her, she pumped at least 10ml from each breast. Encouraged breast massage before and during pumping, warm shower, warm washcloths, and hand expression to help facilitate pumping. Mother is encouraged that she has good volume with this pumping session. She knows to call if she has additional questions or concerns. Mother verbalized understanding. Reported to Primary RN.
[2024-02-18 20:00] VITALS: BP 98/64; PULSE 70; RESP 18; TEMP 36.6; O2SAT 100
[2024-02-19] MEDS: IBUPROFEN 600 MG TABLET PO ×2 (04:49→10:40)
[2024-02-19] MEDS: ACETAMINOPHEN 325 MG TABLET 650 MG PO ×2 (04:49→10:40)
--- NOTE | 2024-02-19 07:16 | PM.OBDSVD ---
DS: Admitting Diagnosis Discharge Date 02/19/24 Admitting Diagnosis Elective repeat section DS: Discharge Diagnosis Discharge Diagnosis (1) Delivery by section: Status: Acute OB - DS: Summary Hospital Course Hospital Course: She was admitted for elective repeat section. She had uncomplicated section. She did not take oral pain medication initially and it took several days to get adequate pain control. She was feeling better on POD 3 and wanted to stay to post op day 4 for pain control. She was tolerating regular diet and flatus by post op day 2. OB Procedures : Ultrasound OB Procedures Intrapartum: OB Procedures: : None Peripartum Data Infant Delivery Method: Section Procedures: Procedures Operation Date: 02/15/24 07:30 Actual Procedure Side Surgeon p Repeat Section Koko Ryan MD complications: none Status at Discharge Functional status at discharge: independent ambulation Time Spent with Patient Time attestation: Total time spent providing and/or coordinating discharge services: Exam Const: General: cooperative Orientation/consciousness: oriented to person, oriented to place and oriented to time HENMT: Face/Nose/Sinus: Normal external nose present Eyes: General: appearance normal, both eyes and all related structures Resp: Effort & Inspection: normal respiratory effort GI: Inspection: normal to inspection Skin: General skin exam: normal color Neuro: General: oriented to person, oriented to place and oriented to time Extrem: General: normal to inspection and no calf tenderness Psych: Appearance: grossly normal DS: Data Data Completed and Pending Labs on day of discharge: Labs from last 24 hours 02/18/24 02/16/24 04:53 04:21 WBC 5.7 RBC 2.78 L Hgb 9.8 L Hct 29.7 L MCV 106.8 H MCH 35.3 H MCHC 33.0 RDW 12.9 Plt Count 106 L MPV 12.7 H Blood Type A Negative Antibody Screen TNP Screen Negative Baby's Blood Type A pos Baby's IVAN Positive Doses of RhIg Required 1 Discharge Plan Discharge Attending physician on discharge: Koko Ryan Consulting providers: Kirk Paul Discharging Clinician: Mary Duarte Patient Disposition: Home, Self-Care Activity: may shower and pelvic rest Diet: regular Discharge Instructions: pelvic rest (nothing in the vagina) and no heavy lifting over 15 pounds for 6 weeks. keep incision open to air; do not place any creams/ointments unless directed by doctor. Patient Instructions: (DC) Stand Alone Forms: General Discharge Information Follow-up/Referrals: Koko Ryan MD [Physician] - Call for Appointment Discharge Medications: New hydrocodone-acetaminophen 5-325 mg Tablet 1 tablet PO Q3H PRN (Reason: Breakthrough Pain Rated 4-6) Qty: 20 0RF acetaminophen 325 mg Tablet 650 mg PO Q6H Qty: 60 0RF docusate sodium 100 mg Capsule 100 mg PO BID Qty: 90 0RF ibuprofen 600 mg Tablet 600 mg PO Q6H Qty: 40 0RF polysaccharide iron complex 150 mg iron Capsule 150 mg PO BIDWM Qty: 90 0RF Continued PNV #[id number] acid-dha 35 mg iron-5 mg iron-1 mg capsule 1 cap PO DAILY Qty: 90 2RF ferrous sulfate 325 mg (65 mg iron) tablet 325 mg PO BID Qty: 60 0RF Date of admission: 02/15/24 05:38 Primary Care Provider: Lan Brewer Admitting Provider: Koko Ryan Attending physician on admission: Koko Ryan Condition: Stable
[2024-02-19] MEDS: POLYSACCHARIDE IRON COMPLEX 150 MG CAPSULE PO (08:15)
[2024-02-19] MEDS: MULTIVIT/MIN/PREN/FOL AC/IRON TABLET 1 TAB PO (08:15)
[2024-02-19] MEDS: SIMETHICONE 80 MG TAB.CHEW PO (08:15)
[2024-02-19] MEDS: DOCUSATE SODIUM 100 MG CAPSULE PO (08:16)
[2024-02-19 08:20] VITALS: BP 109/66; PULSE 63; RESP 16; TEMP 36.2; O2SAT 99
[2024-02-19] MEDS: HYDROcodone/acetaminophen (*CRX) 5-325 MG TABLET 1 TAB PO (08:29)
--- NOTE | 2024-02-19 10:00 | PC.NURSE ---
Consulted with mother concerning needs and she requested a breast pump to take home. Mother was provided with the Medela pump in style to use with her 27mm flanges. Mother is feeding appropriately for growth of infant and understands stimulating infant to eat if needed. Infant has had appropriate feedings in the last 24 hours meets the outcomes for weight, output, blood sugar and jaundice at this time. Reinforced understanding of milk production, transition of milk, signs of adequate intake, transition of stool, prevention/relief of engorgement, plugged ducts, mastitis, responsive watching for feeding cues, community resources, and when to call a provider using the resource of the feeding sheet along with the mom and baby guide. Mother voiced understanding of the information shared, is confident to continue effectively pumping at home, when to call for assistance, denies any additional assistance or education at this time. Reported to the Primary RN.
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
== END 2024-02-19 13:02 | disposition home or self-care (01) | DRG 540 ==
LOC: ANHOB2 02-19 10:55 → ANHLDR 02-21 12:13 → ANHOB2 02-21 12:13
PROVIDERS: Admitting Provider Obstetrics & Gynecology; PCP Family Medicine; Visit Provider Obstetrics & Gynecology
PROC: (CPT 59514; principal; 2024-02-15 07:30)
DX: O34.211 Maternal care for low transverse scar from previous cesarean delivery (principal); Z37.0 Single live birth; Z3A.39 39 weeks gestation of pregnancy; O99.12 Other diseases of the blood and blood-forming organs and certain disorders involving the immune mechanism complicating childbirth; D69.6 Thrombocytopenia, unspecified
CPT/HCPCS: 36415; 85025; 85027; 85055; 85461; 86850; 86900; 86901; 90384; A9270; J0690; J2210; J2274; J2405; J2590; J2790; J7120

== ENCOUNTER 2024-10-16 21:23 | Emergency (ER) | payer OTHER, SELFPAY ==
--- OUTSIDE RECORDS SUMMARY | 2024-10-16 21:26 | XMS_ITS | Referral Summary ---
Author Organization [facility] Address [address] [place] [address] Care Team Providers Care Shrimp Header Name Role Phone Miscellaneous, Not In File Primary Care Provider Unavailable Allergies Active Allergy Reactions Criticality Noted Date Comments Sulfa (Sulfonamide Antibiotics) Active Problems Problem Noted Date Diagnosed Date Knee pain 10/30/2010 Social History Tobacco Use Types Packs/Day Years Used Date Smoking Tobacco: Never Personal Safety Answer Date Recorded Have you ever been in or are you currently in a harmful physical or emotional relationship or is someone making you feel afraid or unsafe? 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 Gender Identity Not on file Sexual Orientation Not on file Last Filed Vital Signs Vital Sign Reading Time Taken Comments Blood Pressure 111/58 06/25/2023 9:22 PM FINANCIAL ECONOMIST Pulse 87 06/25/2023 9:22 PM FINANCIAL ECONOMIST Temperature 37.1 C (98.7 F) 06/25/2023 9:22 PM FINANCIAL ECONOMIST Respiratory Rate 14 06/25/2023 9:22 PM FINANCIAL ECONOMIST Oxygen Saturation 100% 06/25/2023 9:22 PM FINANCIAL ECONOMIST Inhaled Oxygen Concentration - - Weight 54.4 kg (120 lb) 06/25/2023 9:22 PM FINANCIAL ECONOMIST Height 162.6 cm (5' 4 ) 06/25/2023 9:22 PM FINANCIAL ECONOMIST Body Mass Index 20.6 06/25/2023 9:22 PM FINANCIAL ECONOMIST Plan of Treatment Not on file Insurance [facility] Care Teams Shrimp Header Relationship Specialty Start Date End Date Miscellaneous, Not In File PCP - General 06/25/23
--- OUTSIDE RECORDS SUMMARY | 2024-10-16 21:26 | XMS_ITS | Encounter Summary ---
Author Organization [facility] Address [address] [place] [address] Care Team Providers Care General Maintenance Mechanic Name Role Phone Unavailable Primary Care Provider Unavailabl e Encounter Details Date Type Department Care Team (Late st Contact Info) Description 01/30/2014 Lab Requisition [facility] [address] [place] [address] Wyatt Rueda MD [facility] [place] [address] Social History Tobacco Use Types Packs/Day Years Used Date Smoking Tobacco: Never Assessed Sex and Gender Information Value Date Recorded Sex Assigned at Not on file Gender Identity Not on file Sexual Orientation Not on file documented as of this encounter Plan of Treatment Not on file documented as of this encounter Procedures Procedure Name Priority Date/Time Associated Diagnosis Comments FIBRONECTIN Routine 01/30/2014 10: 20 AM CDT documented in this encounter Results * FIBRONECTIN (01/30/2014 10:20 AM CDT) Fibronectin Negative Negative 01/30/2014 2:01 PM CDT [facility] Fluid ENTIRE VAGINA / Unknown Collection / Unknown 01/30/2014 10:20 AM CDT 01/30/2014 12:32 PM CDT Narrative [facility] - 01/30/2014 2:01 PM CDT FFN COMMENT: Positive - Indicates the presence of secretions that will result in delivery in less than or equal to 7 to 14 days from collection in symptomatic women. Negative - Indicates the absence of secretions that will result in delivery in less than or equal to 7 to 14 days from collection in symptomatic women. Indeterminate - The specimen does not meet internal acceptance on the initial and repeat testing. The Rapid fFN result should not be interpreted as absolute evidence for the presence or absence of a process that will result in delivery in less than or equal to 7 to 14 days from specimen collection in symptomatic women or delivery in less than or equal to 34 weeks, 6 days in asymptomatic women evaluated between 22 weeks, 0 days and 30 weeks, 6 days of gestation. A positive fFN result may be observed for patients who have experienced cervical disruption caused by, but not limited to, events such as sexual intercourse, digital cervical examination, or vaginal probe ultrasound. The Rapid fFN result should always be used inconjuction with information available from the clinical evaluation of the patient and other diagnostic procedures such as cervical examination, cervical microbiological culture, assessment of uterine activity, and evaluation of other risk factors. Patients taking [id number] may show falsely elevated levels of Homocysteine. Patients taking methotrexate, nicotinic acid, theophylline, nitrous oxide, or L- dopa can have falsely elevated Homocysteine levels. Heterophilic antibodies in human serum can react with reagent immunoglobulins, interfering with in vitro immunoassays. Patients routinely exposed to animals or to animal serum products can be prone to this interference and anomalous values may be observed. Additional information may be required for diagnosis. Wyatt Rueda MD LAB - BODY FLUID ORD ERABLES [facility] [address] [place] [address] documented in this encounter Visit Diagnoses Not on filedocumented in this encounter
--- OUTSIDE RECORDS SUMMARY | 2024-10-16 21:26 | XMS_ITS | Encounter Summary ---
Author Organization [facility] Address 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
--- OUTSIDE RECORDS SUMMARY | 2024-10-16 21:26 | XMS_ITS | Referral Summary ---
Author Organization [facility] Address [address] [place] [address] Care Team Providers Care Vice President Risk Management Name Role Phone Unavailable Primary Care Provider Unavailabl e Source Comments [facility],non-owned Affiliates and Associated Physician Practices is amultiple site organization consisting of ambulatory clinics and hospital sitesin [place], [place], [place] and [place]. This disclosure is being madepursuant to the Care Everywhere program and may not contain all information available regarding this patient. Last updated 18.[facility] [employer] Social History Tobacco Use Types Packs/Day Years Used Date Smoking Tobacco: Never Assessed Sex and Gender Information Value Date Recorded Sex Assigned at Not on file Gender Identity Not on file Sexual Orientation Not on file Plan of Treatment Not on file
--- OUTSIDE RECORDS SUMMARY | 2024-10-16 21:26 | XMS_ITS | Clinical Summary ---
Author Organization [facility] Address [address] [place] [phone] Phone Care Team Providers Care Sleeve Ironer Name Role Phone Unavailable Primary Care Provider Unavailabl e Encounters Date Type Department Care Team Description 10/13/2024 External Device Data [facility] ABSTRACTION Provider, Abstract 10/11/2024 External Device Data [facility] ABSTRACTION Provider, Abstract 09/27/2024 External Device Data [facility] ABSTRACTION Provider, Abstract 09/05/2024 External Device Data [facility] ABSTRACTION Provider, Abstract 08/30/2024 External Device Data [facility] ABSTRACTION Provider, Abstract from Last 3 Months Social History Tobacco Use Types Packs/Day Years Used Date Smoking Tobacco: Never Assessed Comments Unknown Sex and Gender Information Value Date Recorded Sex Assigned at Not on file 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
--- OUTSIDE RECORDS SUMMARY | 2024-10-16 21:26 | XMS_ITS | Patient Health Summary ---
Author Organization [facility] Address [address] [place] [address] Care Team Providers Care X Ray Service Technician Name Role Phone Unavailable Primary Care Provider Unavailabl e Note from [facility],non-owned Affiliates and Associated Physician Practices is amultiple site organization consisting of ambulatory clinics and hospital sitesin [place], [place], [place] and [place]. This disclosure is being madepursuant to the Care Everywhere program and may not contain all information available regarding this patient. Last updated 18.[facility] Social History Tobacco Use Types Packs/Day Years Used Date Smoking Tobacco: Never Assessed Sex and Gender Information Value Date Recorded Sex Assigned at Not on file Gender Identity Not on file Sexual Orientation Not on file Procedures * FIBRONECTIN(Performed 01/30/2014) Results * FIBRONECTIN (01/30/2014 10:20 AM CDT) Fibronectin Negative Negative 01/30/2014 2:01 PM CDT [facility] Fluid ENTIRE VAGINA / Unknown Collection / Unknown 01/30/2014 10:20 AM CDT 01/30/2014 12:32 PM CDT Narrative [facility] - 01/30/2014 2:01 PM CDT [...] evaluation of other risk factors. Patients taking T-imzmlkir-ekyxxjcnpm may show falsely elevated levels of Homocysteine. [...] MD LAB - BODY FLUID ORD ERABLES [facility] [address] [place] [address]
--- OUTSIDE RECORDS SUMMARY | 2024-10-16 21:26 | XMS_ITS | Clinical Summary ---
Author Organization [facility] [employer] Address [address] [place] [address] Care Team Providers Care Electron Beam Photo Mask Technician Name Role Phone Unavailable Primary Care Provider Unavailabl e Source Comments [facility] [employer],non-owned Affiliates and Associated Physician Practices is amultiple site organization consisting of ambulatory clinics and hospital sitesin [place], [place], [place] and [place]. This disclosure is being madepursuant to the Care Everywhere program and may not contain all information available regarding this patient. Last updated 18.[facility] [employer] Social History Tobacco Use Types Packs/Day Years Used Date Smoking Tobacco: Never Assessed Sex and Gender Information Value Date Recorded Sex Assigned at Not on file Gender Identity Not on file Sexual Orientation Not on file Plan of Treatment Health Maintenance Due Date Last Done Comments PAP SMEAR 1995 HIV SCREENING 2010 HEPATITIS C SCREENING 07/15/2013 DTAP/TDAP/TD VACCINES (1 - Tdap) 2014 HEPATITIS B VACCINE (1 of 3 - 19+ 3-dose series) 2014 COVID-19 VACCINE (2023-2 5 season) 2024 INFLUENZA VACCINE (#1) 2024 DEPRESSION SCREENING 08/09/2024 ZOSTER VACCINE (1 of 2) 2045 HIB VACCINE Aged Out No longer eligi ble based on patient's age to complete this topic HPV VACCINE Aged Out No longer eligi ble based on patient's age to complete this topic MENINGOCOCCAL (Group B) VACCINE Aged Out No longer eligible based on patient's age to complete this topic MENINGOCOCCAL VACCINE Aged Out No norma tracey eligible based on patient's age to complete this topic PNEUMOCOCCAL VACCINE Aged Out No long er eligible based on patient's age to complete this topic
--- OUTSIDE RECORDS SUMMARY | 2024-10-16 21:26 | XMS_ITS | Clinical Summary ---
Author Organization [facility] Address [address] [place] [address] Care Team Providers Care Keg Header Name Role Phone Miscellaneous, Not In [...] on file Legal Sex Female 3:14 AM FACE BURLER Gender Identity Not on file Sexual Orientation Not on file Obstetrics History Para Term AB IAB SAB Ectopic Multiple Livin g Live Births 1 Date Outcome GA Total Labor Labor/2nd/3rd Weight Sex Type Anes PTL Ursula A1 A5 Name Clin Last Filed Vital Signs Vital Sign Reading Time Taken Comments Blood Pressure 111/58 06/25/2023 9:22 PM FACE BURLER Pulse 87 06/25/2023 9:22 PM FACE BURLER Temperature 37.1 C (98.7 F) 06/25/2023 9:22 PM FACE BURLER Respiratory Rate 14 06/25/2023 9:22 PM FACE BURLER Oxygen Saturation 100% 06/25/2023 9:22 PM FACE BURLER Inhaled Oxygen Concentration - - Weight 54.4 kg (120 lb) 06/25/2023 9:22 PM FACE BURLER Height 162.6 cm (5' 4 ) 06/25/2023 9:22 PM FACE BURLER Body Mass Index 20.6 06/25/2023 9:22 PM FACE BURLER Plan of Treatment Health Maintenance Due Date Last Done Comments Cervical Cancer Screening 1995 Depression Screening 1995 Hepatitis C Screening 1995 Varicella Vaccines (2 of 2 - 2-dose childhood series) 1999 01/16/1997 DTaP/Tdap/Td Vaccine (5 - Tdap) 2006 10/20/1996, 02/07/1996, 1995, Additional history exists Regular Well Visit/Exam 18-64 2013 Influenza Vaccine (#1) 2024 Hepatitis B Screening Completed 02/07/1996 , 1995, 1995 HPV Vaccines Aged Out No longer eligi ble based on patient's age to complete this topic Pneumococcal vaccine <65 Aged Out No longer eligible based on patient's age to complete this topic Insurance [facility] Care Teams Keg Header Relationship Specialty Start Date End Date Miscellaneous, Not In File PCP - General 06/25/23
[2024-10-16 21:27] VITALS: BP 110/78; PULSE 124; RESP 15; TEMP 37.3; O2SAT 100
[2024-10-16 22:36] LABS: Influenza A QL RT-PCR Negative (Negative); Influenza B QL RT-PCR Negative (Negative); RSV RNA, RT-PCR Negative (Negative); SARS-CoV-2 RNA PCR Negative (Negative)
--- OUTSIDE RECORDS SUMMARY | 2024-10-16 22:44 | XMS_ITS | Encounter Summary ---
Author Organization [facility] Address 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
--- OUTSIDE RECORDS SUMMARY | 2024-10-16 22:44 | XMS_ITS | Encounter Summary ---
Author Organization [facility] Address [address] [address] Care Team Providers Care Dial Screw Assembler Name Role Phone Unavailable Primary Care Provider Unavailabl e Encounter Details Date Type Department Care Team (Late st Contact Info) Description 01/30/2014 Lab Requisition [facility] [address] [place] [address] Wyatt Rueda MD [facility] [place] [address] Social History Tobacco Use Types [...] Fibronectin Negative Negative 01/30/2014 2:01 PM CDT [facility] Fluid ENTIRE VAGINA / Unknown Collection / Unknown 01/30/2014 10:20 AM CDT 01/30/2014 12:32 PM CDT Narrative [facility] - 01/30/2014 2:01 PM CDT FFN [...] evaluation of other risk factors. Patients taking F-lubhisli-mgwptfqhzr may show falsely elevated levels of Homocysteine. [...] MD LAB - BODY FLUID ORD ERABLES [facility] [address] [place] [address] documented in this encounter Visit Diagnoses Not on filedocumented in this encounter
--- OUTSIDE RECORDS SUMMARY | 2024-10-16 22:44 | XMS_ITS | Clinical Summary ---
Author Organization [facility] Address [address] [place] [address] Care Team Providers Care Food Adviser Name Role Phone Miscellaneous, Not In File [...] on file Legal Sex Female 3:14 AM BLIND AIDE Gender Identity Not on file Sexual Orientation Not on file Obstetrics History Para Term AB IAB SAB Ectopic Multiple Livin g Live Births 1 Date Outcome GA Total Labor Labor/2nd/3rd Weight Sex Type Anes PTL Ursula A1 A5 Name Clin Last Filed Vital Signs Vital Sign Reading Time Taken Comments Blood Pressure 111/58 06/25/2023 9:22 PM BLIND AIDE Pulse 87 06/25/2023 9:22 PM BLIND AIDE Temperature 37.1 C (98.7 F) 06/25/2023 9:22 PM BLIND AIDE Respiratory Rate 14 06/25/2023 9:22 PM BLIND AIDE Oxygen Saturation 100% 06/25/2023 9:22 PM BLIND AIDE Inhaled Oxygen Concentration - - Weight 54.4 kg (120 lb) 06/25/2023 9:22 PM BLIND AIDE Height 162.6 cm (5' 4 ) 06/25/2023 9:22 PM BLIND AIDE Body Mass Index 20.6 06/25/2023 9:22 PM BLIND AIDE Plan of Treatment Health Maintenance Due Date [...] patient's age to complete this topic Insurance [facility] Care Teams Food Adviser Relationship Specialty Start Date End Date Miscellaneous, Not In File PCP - General 06/25/23
--- OUTSIDE RECORDS SUMMARY | 2024-10-16 22:44 | XMS_ITS | Patient Health Summary ---
Author Organization [facility] Address [address] [place] [address] Care Team Providers Care Pourer Name Role Phone Unavailable Primary Care Provider Unavailabl e Note from [facility],non-owned Affiliates and Associated Physician Practices is amultiple site organization consisting of ambulatory clinics and hospital sitesin [place], [place], [place] and [place]. This disclosure is being madepursuant to the Care Everywhere program and may not contain all information available regarding this patient. Last updated 18.[facility] Social History Tobacco Use Types Packs/Day Years Used Date Smoking Tobacco: Never Assessed Sex and Gender Information Value Date Recorded Sex Assigned at Not on file Gender Identity Not on file Sexual Orientation Not on file Procedures * FIBRONECTIN(Performed 01/30/2014) Results * FIBRONECTIN (01/30/2014 10:20 AM CDT) Fibronectin Negative Negative 01/30/2014 2:01 PM CDT [facility] Fluid ENTIRE VAGINA / Unknown Collection / Unknown 01/30/2014 10:20 AM CDT 01/30/2014 12:32 PM CDT Narrative [facility] - 01/30/2014 2:01 PM CDT FFN [...] evaluation of other risk factors. Patients taking N-iitemrtn-gdweiddbpb may show falsely elevated levels of Homocysteine. [...] MD LAB - BODY FLUID ORD ERABLES [facility] [address] [place] [address]
--- OUTSIDE RECORDS SUMMARY | 2024-10-16 22:44 | XMS_ITS | Clinical Summary ---
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
--- OUTSIDE RECORDS SUMMARY | 2024-10-16 22:44 | XMS_ITS | Clinical Summary ---
Author Organization [facility] [employer] Address [address] [place] [address] Care Team Providers Care Primer Expeditor And Drier Name Role Phone Unavailable Primary Care Provider Unavailabl e Source Comments [facility] [employer],non-owned Affiliates and Associated Physician Practices is amultiple site organization consisting of ambulatory clinics and hospital sitesin [place], [place], [place] and [place]. This disclosure is being madepursuant to the Care Everywhere program and may not contain all information available regarding this patient. Last updated 18.[facility] [employer] Social History Tobacco Use Types Packs/Day Years [...]
--- OUTSIDE RECORDS SUMMARY | 2024-10-16 22:44 | XMS_ITS | Referral Summary ---
Author Organization [facility] Address [address] [place] [address] Care Team Providers Care Mobile Nurse Name Role Phone Unavailable Primary Care Provider Unavailabl e Source Comments [facility],non-owned Affiliates and Associated Physician Practices is amultiple site organization consisting of ambulatory clinics and hospital sitesin [place], [place], [place] and [place]. This disclosure is being madepursuant to the Care Everywhere program and may not contain all information available regarding this patient. Last updated 18.[facility] [employer] Social History Tobacco Use Types Packs/Day Years Used Date Smoking Tobacco: Never Assessed Sex and Gender Information Value Date Recorded Sex Assigned at Not on file Gender Identity Not on file Sexual Orientation Not on file Plan of Treatment Not on file
--- OUTSIDE RECORDS SUMMARY | 2024-10-16 22:44 | XMS_ITS | Referral Summary ---
Author Organization [facility] Address [address] [place] [address] Care Team Providers Care Theater Company Producer Name Role Phone Miscellaneous, Not In File [...] on file Legal Sex Female 3:14 AM FILBERT GROWER Gender Identity Not on file Sexual Orientation Not on file Last Filed Vital Signs Vital Sign Reading Time Taken Comments Blood Pressure 111/58 06/25/2023 9:22 PM FILBERT GROWER Pulse 87 06/25/2023 9:22 PM FILBERT GROWER Temperature 37.1 C (98.7 F) 06/25/2023 9:22 PM FILBERT GROWER Respiratory Rate 14 06/25/2023 9:22 PM FILBERT GROWER Oxygen Saturation 100% 06/25/2023 9:22 PM FILBERT GROWER Inhaled Oxygen Concentration - - Weight 54.4 kg (120 lb) 06/25/2023 9:22 PM FILBERT GROWER Height 162.6 cm (5' 4 ) 06/25/2023 9:22 PM FILBERT GROWER Body Mass Index 20.6 06/25/2023 9:22 PM FILBERT GROWER Plan of Treatment Not on file Insurance [facility] Care Teams Theater Company Producer Relationship Specialty Start Date End Date Miscellaneous, Not In File PCP - General 06/25/23
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
[2024-10-16 23:21] VITALS: BP 104/68; PULSE 104; RESP 14; TEMP 37.9; O2SAT 100
--- NOTE | 2024-10-16 23:21 | PC.NURSE ---
pt offered tylenol for fever and declined stating she would take it at home
[2024-10-16 23:28] VITALS: RESP 14; O2SAT 98
== END 2024-10-16 23:29 | disposition home or self-care (01) ==
PROVIDERS: Emergency Medicine; Emergency Provider Physician Assistant; PCP Family Medicine
DX: K52.9 Noninfective gastroenteritis and colitis, unspecified (principal); B34.9 Viral infection, unspecified; Z20.822 Contact with and (suspected) exposure to COVID-19
CPT/HCPCS: 87637; 99283